=== PATIENT | female | born 1995 | race African-American/Black ===

== ENCOUNTER 2019-01-01 07:33 | Emergency (ER) | payer MEDICAID, MEDICARE ==
[~2019-01-01] VITALS: Ht 157.5 cm; Wt 60.0 kg
[2019-01-01 07:56] VITALS: BP 118/78
[2019-01-01] MEDS ORDERED: KETOROLAC 30MG/ML VIAL IM ONE (08:00)
== END 2019-01-01 08:46 | disposition home or self-care (01) ==
LOC: ER 07:33
DX: J02.9 Acute pharyngitis, unspecified (principal); R05 Cough
CPT/HCPCS: 81025; 87430; 96372; 99283; J1885

== ENCOUNTER 2020-01-18 | Emergency (ER) | payer SELFPAY ==
[~2020-01-18] VITALS: Ht 170.2 cm; Wt 68.0 kg
[2020-01-18] MEDS ORDERED: KETOROLAC 30MG/ML VIAL IM STA (01:22)
[2020-01-18 01:50] LABS: *BARBITURATES SCREEN URINE NEGATIVE (NEGATIVE); *BENZODIAZEPINES SCREEN URINE NEGATIVE (NEGATIVE); *COCAINE SCREEN URINE NEGATIVE (NEGATIVE); METHADONE URINE SCREEN NEGATIVE (NEGATIVE); OPIATES URINE SCREEN NEGATIVE (NEGATIVE); PHENCYCLIDINE URINE SCREEN NEGATIVE (NEGATIVE)
[2020-01-18 01:51] LABS: CANNABINOID URINE SCREEN NEGATIVE (NEGATIVE)
[2020-01-18 02:05] LABS: *AMPHETAMINES SCREEN URINE PRESUMTIVE POSITIVE (NEGATIVE)
[2020-01-18] MEDS ORDERED: ACETAMINOPHEN 325MG TABLET PO ONE (03:15)
[2020-01-18 03:42] LABS: BASOPHILS % 0.3 % (0.0-2.0); EOSINOPHILS % 0.5 % (0.0-5.0); HEMATOCRIT. 38.4 % (36.0-48.0); HEMOGLOBIN. 12.4 g/dL (12.0-16.0); LYMPHOCYTES % 9.9 % (20.0-50.0); MEAN CORPUSCULAR HEMOGLOBIN 23.4 pg (28.0-32.0); MEAN CORPUSCULAR VOLUME 72.7 fL (81.0-99.0); MEAN PLATELET VOLUME 8.9 fl (7.4-10.4); MONOCYTES % 4.9 % (2.0-8.0); NEUTROPHILS % 84.4 % (40.0-76.0); PLATELET 286 x1000/uL (130-400); RED BLOOD CELL COUNT 5.28 mill/uL (4.2-5.4); RED CELL DISTRIBUTION WIDTH 13.2 % (11.6-14.6)
[2020-01-18 03:57] LABS: CHLORIDE 103 mEq/L (98-107)
[2020-01-18 04:10] LABS: B-HCG QUANTITATIVE < 1 mIU/mL (<3)
[2020-01-18 06:11] LABS: CLARITY URINE CLOUDY (CLEAR); COLOR URINE YELLOW (YELLOW); KETONES URINE NEGATIVE (NEGATIVE); LEUKOCYTE ESTERASE URINE 3+ (NEGATIVE); NITRITE URINE NEGATIVE (NEGATIVE); OCCULT BLOOD URINE NEGATIVE (NEGATIVE); PROTEIN URINE NEGATIVE (NEGATIVE); SPECIFIC GRAVITY URINE 1.011 (1.005-1.030)
[2020-01-18 06:26] VITALS: BP 132/77
== END 2020-01-18 06:31 | disposition home or self-care (01) ==
LOC: ER
DX: R10.11 Right upper quadrant pain (principal); Z90.49 Acquired absence of other specified parts of digestive tract
CPT/HCPCS: 36415; 76705; 76830; 76856; 80053; 80305; 81003; 84702; 85025; 93005; 99285

== ENCOUNTER 2021-03-03 22:38 | Emergency (ER) | payer SELFPAY ==
[~2021-03-03] VITALS: Ht 162.6 cm; Wt 59.0 kg
[2021-03-04 00:33] LABS: HEMATOCRIT. 36.4 % (36.0-48.0); HEMOGLOBIN. 11.9 g/dL (12.0-16.0); MEAN CORPUSCULAR HEMOGLOBIN 23.6 pg (28.0-32.0); MEAN CORPUSCULAR VOLUME 72.2 fL (81.0-99.0); MEAN PLATELET VOLUME 8.2 fl (7.4-10.4); PLATELET 324 x1000/uL (130-400); RED BLOOD CELL COUNT 5.05 mill/uL (4.2-5.4); RED CELL DISTRIBUTION WIDTH 13.2 % (11.6-14.6)
[2021-03-04 00:40] LABS: CHLORIDE 103 mEq/L (98-107)
[2021-03-04 00:44] LABS: CLARITY URINE TURBID (CLEAR); KETONES URINE 2+ (NEGATIVE); LEUKOCYTE ESTERASE URINE 3+ (NEGATIVE); NITRITE URINE POSITIVE (NEGATIVE); OCCULT BLOOD URINE 3+ (NEGATIVE); PROTEIN URINE 3+ (NEGATIVE); SPECIFIC GRAVITY URINE 1.014 (1.005-1.030)
[2021-03-04 00:46] LABS: COLOR URINE BLOODY (YELLOW)
[2021-03-04 00:48] LABS: HCG SCREEN POSITIVE
[2021-03-04 01:03] LABS: B-HCG QUANTITATIVE 29562 mIU/mL (<3)
[2021-03-04 01:22] LABS: *COCAINE SCREEN URINE NEGATIVE (NEGATIVE); METHADONE URINE SCREEN NEGATIVE (NEGATIVE); OPIATES URINE SCREEN NEGATIVE (NEGATIVE); PHENCYCLIDINE URINE SCREEN NEGATIVE (NEGATIVE)
[2021-03-04 01:23] LABS: *BARBITURATES SCREEN URINE NEGATIVE (NEGATIVE); *BENZODIAZEPINES SCREEN URINE NEGATIVE (NEGATIVE); CANNABINOID URINE SCREEN NEGATIVE (NEGATIVE)
[2021-03-04 01:30] LABS: *AMPHETAMINES SCREEN URINE PRESUMTIVE POSITIVE (NEGATIVE)
[2021-03-04 02:22] LABS: PLATELET ESTIMATE NORMAL
[2021-03-04] MEDS ORDERED: MORPHINE SULFATE 4 MG/ML CPJ (NOT FOR IM USE) IV ONE (03:00)
[2021-03-04] MEDS ORDERED: IBUP-2028 MT (04:25)
[2021-03-04 06:13] VITALS: BP 120/55
== END 2021-03-04 06:15 | disposition home or self-care (01) ==
LOC: ER 22:38
DX: O03.9 Complete or unspecified spontaneous abortion without complication (principal); Z3A.01 Less than 8 weeks gestation of pregnancy
CPT/HCPCS: 36415; 76801; 76817; 80053; 80305; 81003; 81025; 84702; 84703; 85025; 86850; 86900; 86901; 87086; 88307; 88309; 96374; 99285; J2270

== ENCOUNTER 2023-03-11 08:16 | Emergency (ER) | payer OTHER ==
[~2023-03-11] VITALS: Ht 170.2 cm; Wt 66.0 kg
[~2023-03-11 08:16] MED LIST: IBUP-2028 MT
[2023-03-11 08:28] VITALS: O2SAT 100
[2023-03-11] MEDS ORDERED: ACETAMINOPHEN 325MG TABLET PO PRN (09:00)
[2023-03-11 10:04] LABS: BASOPHILS % 0.8 % (0.0-2.0); DIFFERENTIAL COMMENT 0; EOSINOPHILS % 0.8 % (0.0-5.0); HEMATOCRIT. 36.8 % (36.0-48.0); HEMOGLOBIN. 11.6 g/dL (12.0-16.0); LYMPHOCYTES % 30.9 % (20.0-50.0); MEAN CORPUSCULAR HEMOGLOBIN 23.9 pg (28.0-32.0); MEAN CORPUSCULAR HGB CONC 31.6 g/dL (31.0-37.0); MEAN CORPUSCULAR VOLUME 75.6 fL (81.0-99.0); MEAN PLATELET VOLUME 8.4 fl (7.4-10.4); MONOCYTES % 8.5 % (2.0-8.0); PLATELET 308 x1000/uL (130-400); RED BLOOD CELL COUNT 4.87 mill/uL (4.2-5.4); RED CELL DISTRIBUTION WIDTH 13.5 % (11.6-14.6); WHITE BLOOD COUNT 7.5 x1000/uL (4.5-11.0)
[2023-03-11 10:14] LABS: CLARITY URINE CLEAR (CLEAR); COLOR URINE YELLOW (YELLOW); GLUCOSE URINE NEGATIVE (NEGATIVE); KETONES URINE NEGATIVE (NEGATIVE); LEUKOCYTE ESTERASE URINE TRACE (NEGATIVE); NITRITE URINE NEGATIVE (NEGATIVE); OCCULT BLOOD URINE 3+ (NEGATIVE); PROTEIN URINE NEGATIVE (NEGATIVE); SPECIFIC GRAVITY URINE 1.014 (1.005-1.030)
[2023-03-11 10:16] LABS: BACTERIA URINE NONE SEEN; RBC URINE TNTC /hpf (0-2); YEAST URINE NONE SEEN
[2023-03-11] MEDS ORDERED: CEFTRIAXONE 1GM PREMIX 50 ML IV NR (10:30)
[2023-03-11 10:32] LABS: ALANINE AMINOTRANSFERASE 8 IU/L (10-49); ALBUMIN 3.8 g/dL (3.2-4.8); ASPARTATE AMINOTRANSFERASE 18 IU/L (<34); B-HCG QUANTITATIVE 1220 mIU/mL (<3); BILIRUBIN TOTAL 0.3 mg/dL (0.1-1.0); CARBON DIOXIDE 30 mEq/L (21-32); CHLORIDE 104 mEq/L (98-107); CREATININE 0.8 mg/dL (0.6-1.0); GLUCOSE 83 mg/dL (70-105); PROTEIN TOTAL 6.4 g/dL (6.0-8.3); SODIUM 137 mEq/L (136-145); UREA NITROGEN BLOOD 7 mg/dL (9-23)
[2023-03-11 10:33] LABS: SQUAMOUS EPITHELIAL CELL URINE 1+ /lpf (RARE/1+)
[2023-03-11 10:35] LABS: TRICHOMONAS URINE RARE
[2023-03-11 10:44] LABS: ETHANOL BLOOD < 10 mg/dL (<10)
[2023-03-11] MEDS ORDERED: CEPH500C2 MT (11:03)
[2023-03-11] MEDS ORDERED: METHOTREXATE SODIUM/PF 50 MG/2 ML VIAL IM NR (12:00)
[2023-03-11 14:30] VITALS: BP 122/76; PULSE 71; RESP 14; TEMP 98.6
[2023-03-11 16:22] LABS: *AMPHETAMINES SCREEN URINE PRESUMPTIVE POSITIVE (NEGATIVE); *BARBITURATES SCREEN URINE NEGATIVE (NEGATIVE); *BENZODIAZEPINES SCREEN URINE NEGATIVE (NEGATIVE); *COCAINE SCREEN URINE NEGATIVE (NEGATIVE); CANNABINOID URINE SCREEN NEGATIVE (NEGATIVE); METHADONE URINE SCREEN Neg (NEGATIVE); OPIATES URINE SCREEN NEGATIVE (NEGATIVE); PHENCYCLIDINE URINE SCREEN NEGATIVE (NEGATIVE)
== END 2023-03-11 14:31 | disposition home or self-care (01) ==
LOC: ER 08:52
DX: O23.41 Unspecified infection of urinary tract in pregnancy, first trimester (principal); N39.0 Urinary tract infection, site not specified; Z3A.00 Weeks of gestation of pregnancy not specified
CPT/HCPCS: 80053; 80305; 81003; 81025; 80320; 84702; 85025; 86850; 86900; 86901; 36415; 76801; 76817; 96365; 96372; 99291; J9260; J0696; Z7610; G0480

== ENCOUNTER 2023-08-30 00:23 | Emergency (ER) | payer OTHER ==
[~2023-08-30] VITALS: Ht 167.6 cm; Wt 59.0 kg
[~2023-08-30 00:23] MED LIST changes: +CEPH500C2 MT
[2023-08-30 00:33] VITALS: BP 124/97; PULSE 114; RESP 16; O2SAT 100
[2023-08-30 00:47] VITALS: TEMP 100.8
[2023-08-30] MEDS: ACETAMINOPHEN 325MG TABLET PO ONE (00:47)
== END 2023-08-30 04:24 | disposition left against medical advice (07) ==
LOC: ER 00:23
DX: J02.9 Acute pharyngitis, unspecified (principal); R05.9 Cough, unspecified; F15.10 Other stimulant abuse, uncomplicated; Z53.21 Procedure and treatment not carried out due to patient leaving prior to being seen by health care provider; Z98.890 Other specified postprocedural states
CPT/HCPCS: 99283

== ENCOUNTER 2023-09-03 07:30 | Emergency (ER) | payer OTHER ==
[~2023-09-03] VITALS: Ht 167.6 cm; Wt 75.0 kg
[2023-09-03 07:43] VITALS: O2SAT 100
[2023-09-03] MEDS: ACETAMINOPHEN 325MG TABLET PO ONE (09:16)
[2023-09-03] MEDS ORDERED: AMOX1TAB16 MT (10:45)
[2023-09-03 11:24] VITALS: BP 113/75; PULSE 96; RESP 17; TEMP 98.2
[2023-09-03] MEDS: AMOXICILLIN/POTASSIUM CLAVULANATE 875/125MG TAB PO ONE (11:24)
[2023-09-04] MEDS ORDERED: ALBU18HF2 IH (11:06)
[2023-09-04] MEDS ORDERED: LEVO750T68 MT (11:06)
[2023-09-04] MEDS ORDERED: FLUT1DIS3 INH (11:06)
[2023-09-04] MEDS ORDERED: IBUP-2028 MT (11:06)
== END 2023-09-03 11:29 | disposition home or self-care (01) ==
LOC: ER 07:30
DX: J18.9 Pneumonia, unspecified organism (principal); F15.10 Other stimulant abuse, uncomplicated
CPT/HCPCS: 71046; 93005; 99283

== ENCOUNTER 2023-09-05 08:37 | Inpatient (IN) | payer OTHER ==
[~2023-09-05] VITALS: Ht 162.6 cm; Wt 67.1 kg
[~2023-09-05 08:37] MED LIST changes: +ALBU18HF2 IH; -CEPH500C2 MT; +FLUT1DIS3 INH; +LEVO750T68 MT
[2023-09-05 09:19] LABS: HEMATOCRIT. 37.7 % (36.0-48.0); HEMOGLOBIN. 12.2 g/dL (12.0-16.0); MEAN CORPUSCULAR HEMOGLOBIN 23.1 pg (28.0-32.0); MEAN CORPUSCULAR HGB CONC 32.4 g/dL (31.0-37.0); MEAN CORPUSCULAR VOLUME 71.2 fL (81.0-99.0); MEAN PLATELET VOLUME 8.2 fl (7.4-10.4); PLATELET 562 x1000/uL (130-400); RED BLOOD CELL COUNT 5.29 mill/uL (4.2-5.4); RED CELL DISTRIBUTION WIDTH 15.1 % (11.6-14.6); WHITE BLOOD COUNT 23.6 x1000/uL (4.5-11.0)
[2023-09-05 09:23] LABS: DIFFERENTIAL COMMENT 1
[2023-09-05 09:24] LABS: CHLORIDE 98 mEq/L (98-107); POTASSIUM 4.5 mEq/L (3.5-5.1); SODIUM 131 mEq/L (136-145)
[2023-09-05 09:25] LABS: CALCIUM 8.5 mg/dL (8.7-10.4); CARBON DIOXIDE 26 mEq/L (21-32)
[2023-09-05 09:28] LABS: HCG SCREEN NEGATIVE
[2023-09-05 09:30] LABS: CREATININE 0.8 mg/dL (0.6-1.0); GLUCOSE 102 mg/dL (70-105); UREA NITROGEN BLOOD 7 mg/dL (9-23)
[2023-09-05 09:45] LABS: BG BASE EXCESS 3.8 mmol/L (-2.0-2.0); BG CARBOXYHEMOGLOBIN 0.3 % (0.5-1.5); BG DEOXYHEMOGLOBIN 6.4 % (0.0-5.0); BG FRACTION INSPIRED OXYGEN 21; BG HCO3 ACT 26.7 mmol/L (22.0-26.0); BG METHEMOGLOBIN 0.2 % (0.0-1.5); BG OXYGEN SATURATION 93.6 % (92.0-98.5); BG OXYHEMOGLOBIN 93.1 % (94.0-97.0); BG PCO2 34.5 mmHg (35.0-45.0); BG PH 7.506 (7.350-7.450); BG PO2 61.4 mmHg (75.0-100.0); BG SAMPLE SITE RIGHT RADIAL; BG TOTAL HEMOGLOBIN 13.3 g/dL (12.0-18.0); BG VENT MODE ROOM AIR
[2023-09-05] MEDS: PIPERACILLIN/TAZO 3.375G/50ML 50 ML IV ONE (09:59)
[2023-09-05] MEDS: SODIUM CHLORIDE 0.9% 1000ML BAG (SEPSIS BOLUS) IV ONE (10:00)
[2023-09-05] MEDS: VANCOMYCIN 1G PREMIX 200 ML IV ONE (10:36)
[2023-09-05] MEDS: KETOROLAC 30MG/ML VIAL IV ONE (12:14)
[2023-09-05] MEDS ORDERED: NALOXONE HCL 0.4MG/ML VIAL IV PRN (12:15)
[2023-09-05 13:05] LABS: PLATELET ESTIMATE INCREASED
[2023-09-05 13:06] LABS: ANISOCYTOSIS 1+; MICROCYTOSIS 1+
[2023-09-05] MEDS: KETOROLAC 30MG/ML VIAL IV PRN (16:28)
[2023-09-05] MEDS ORDERED: IPRATROPIUM/ALBUTEROL 0.5-3(2.5)MG/3ML NEB HHN PRN (16:30)
[2023-09-05] MEDS: PIPERACILLIN/TAZO 3.375G/50ML 50 ML IV SCH (21:25)
[2023-09-05] MEDS: HALOPERIDOL LACTATE 5MG/ML VIAL IM PRN (21:26)
[2023-09-05] MEDS ORDERED: PIPERACILLIN/TAZO 3.375G/50ML 50 ML IV SCH (22:00)
[2023-09-06] VITALS: BP_SYST 125; BP_SYST 128; BP_DIAS 66; PULSE 105; RESP 18; TEMP 98.1; TEMP 98.5
[2023-09-06 01:23] VITALS: BP 115/64; PULSE 105; RESP 22; TEMP 97.8
[2023-09-06 04:08] VITALS: BP 128/66; PULSE 102; RESP 23; TEMP 98.2
[2023-09-06 06:00] VITALS: BP 111/63; PULSE 85; RESP 18; TEMP 97.5
[2023-09-06 06:22] LABS: CARBON DIOXIDE 26 mEq/L (21-32); CHLORIDE 103 mEq/L (98-107); POTASSIUM 4.5 mEq/L (3.5-5.1); SODIUM 135 mEq/L (136-145)
[2023-09-06 06:23] LABS: CALCIUM 8.2 mg/dL (8.7-10.4)
[2023-09-06 06:27] LABS: HEMATOCRIT. 33.1 % (36.0-48.0); HEMOGLOBIN. 10.9 g/dL (12.0-16.0); MEAN CORPUSCULAR HEMOGLOBIN 23.5 pg (28.0-32.0); MEAN CORPUSCULAR HGB CONC 32.8 g/dL (31.0-37.0); MEAN CORPUSCULAR VOLUME 71.6 fL (81.0-99.0); MEAN PLATELET VOLUME 8.4 fl (7.4-10.4); PLATELET 557 x1000/uL (130-400); RED BLOOD CELL COUNT 4.62 mill/uL (4.2-5.4); RED CELL DISTRIBUTION WIDTH 15.1 % (11.6-14.6); WHITE BLOOD COUNT 23.5 x1000/uL (4.5-11.0)
[2023-09-06 06:28] LABS: CREATININE 0.7 mg/dL (0.6-1.0); GLUCOSE 106 mg/dL (70-105); UREA NITROGEN BLOOD 9 mg/dL (9-23)
[2023-09-06 06:33] LABS: DIFFERENTIAL COMMENT 1
[2023-09-06 15:05] LABS: PLATELET ESTIMATE SLIGHTLY INCREASED
[2023-09-06] MEDS: HYDROCODONE/ACETAMINOPHEN 10/325MG TABLET PO PRN (15:30)
[2023-09-07] VITALS (8 sets, daily range): BP systolic 111–125; BP diastolic 63–74; PULSE 76–102; RESP 18–20; TEMP 97.5–98.1
[2023-09-07 05:52] LABS: CARBON DIOXIDE 28 mEq/L (21-32); CHLORIDE 101 mEq/L (98-107); HEMATOCRIT. 32.1 % (36.0-48.0); HEMOGLOBIN. 10.4 g/dL (12.0-16.0); MEAN CORPUSCULAR HEMOGLOBIN 23.2 pg (28.0-32.0); MEAN CORPUSCULAR HGB CONC 32.5 g/dL (31.0-37.0); MEAN CORPUSCULAR VOLUME 71.3 fL (81.0-99.0); MEAN PLATELET VOLUME 8.5 fl (7.4-10.4); PLATELET 635 x1000/uL (130-400); POTASSIUM 4.5 mEq/L (3.5-5.1); RED CELL DISTRIBUTION WIDTH 14.7 % (11.6-14.6); SODIUM 135 mEq/L (136-145); WHITE BLOOD COUNT 32.4 x1000/uL (4.5-11.0)
[2023-09-07 05:53] LABS: CALCIUM 8.3 mg/dL (8.7-10.4)
[2023-09-07 05:58] LABS: CREATININE 0.6 mg/dL (0.6-1.0); GLUCOSE 97 mg/dL (70-105); UREA NITROGEN BLOOD 8 mg/dL (9-23)
[2023-09-07 06:52] LABS: DIFFERENTIAL COMMENT 1
[2023-09-07 15:19] LABS: HYPOCHROMASIA 1+; MICROCYTOSIS 2+; PLATELET ESTIMATE INCREASED; TARGET CELLS 1+
[2023-09-07] MEDS: AZITHROMYCIN 500 MG TABLET PO NR (18:30)
[2023-09-08 06:43] LABS: HEMOGLOBIN. 11.1 g/dL (12.0-16.0); MEAN CORPUSCULAR HEMOGLOBIN 23.7 pg (28.0-32.0); MEAN CORPUSCULAR HGB CONC 32.8 g/dL (31.0-37.0); MEAN CORPUSCULAR VOLUME 72.3 fL (81.0-99.0); MEAN PLATELET VOLUME 8.1 fl (7.4-10.4); PLATELET 644 x1000/uL (130-400); RED CELL DISTRIBUTION WIDTH 14.7 % (11.6-14.6); WHITE BLOOD COUNT 29.8 x1000/uL (4.5-11.0)
[2023-09-08 06:52] LABS: DIFFERENTIAL COMMENT 1
[2023-09-08 06:53] LABS: CARBON DIOXIDE 25 mEq/L (21-32); CHLORIDE 102 mEq/L (98-107); POTASSIUM 4.4 mEq/L (3.5-5.1); SODIUM 133 mEq/L (136-145)
[2023-09-08 06:55] LABS: CALCIUM 8.7 mg/dL (8.7-10.4)
[2023-09-08 06:59] LABS: CREATININE 0.7 mg/dL (0.6-1.0); GLUCOSE 101 mg/dL (70-105); UREA NITROGEN BLOOD 7 mg/dL (9-23)
[2023-09-08 08:00] VITALS: BP 117/61; PULSE 92; RESP 20; TEMP 98.3
[2023-09-08] MEDS: AZITHROMYCIN 500 MG TABLET PO SCH (08:32)
[2023-09-08 11:11] LABS: MICROCYTOSIS 1+; PLATELET ESTIMATE MARKEDLY INCREASED; TARGET CELLS 2+
[2023-09-08 12:00] VITALS: BP 120/69; PULSE 89; RESP 20; TEMP 98.4
[2023-09-08 16:00] VITALS: BP 98/53; PULSE 71; RESP 20; TEMP 96.9
[2023-09-09 04:00] VITALS: BP 104/60; PULSE 98; RESP 19; TEMP 98
[2023-09-09 06:22] LABS: HEMATOCRIT. 31.5 % (36.0-48.0); HEMOGLOBIN. 10.2 g/dL (12.0-16.0); MEAN CORPUSCULAR HGB CONC 32.5 g/dL (31.0-37.0); MEAN CORPUSCULAR VOLUME 70.8 fL (81.0-99.0); MEAN PLATELET VOLUME 8.2 fl (7.4-10.4); PLATELET 668 x1000/uL (130-400); RED BLOOD CELL COUNT 4.45 mill/uL (4.2-5.4); RED CELL DISTRIBUTION WIDTH 14.8 % (11.6-14.6); WHITE BLOOD COUNT 22.3 x1000/uL (4.5-11.0)
[2023-09-09 06:26] LABS: CARBON DIOXIDE 26 mEq/L (21-32); CHLORIDE 101 mEq/L (98-107); POTASSIUM 4.6 mEq/L (3.5-5.1); SODIUM 133 mEq/L (136-145)
[2023-09-09 06:27] LABS: CALCIUM 8.3 mg/dL (8.7-10.4)
[2023-09-09 06:32] LABS: CREATININE 0.7 mg/dL (0.6-1.0); GLUCOSE 136 mg/dL (70-105); UREA NITROGEN BLOOD 7 mg/dL (9-23)
[2023-09-09 07:22] LABS: DIFFERENTIAL COMMENT 1
[2023-09-09 08:00] VITALS: BP 107/55; PULSE 86; RESP 20; TEMP 98.1
[2023-09-09] MEDS: LORAZEPAM 1MG TABLET PO PRN (11:03)
[2023-09-09 12:00] VITALS: BP 111/59; PULSE 93; RESP 19; TEMP 97.6
[2023-09-09 17:55] LABS: HYPOCHROMASIA 1+; MICROCYTOSIS 2+; PLATELET ESTIMATE INCREASED
[2023-09-09 20:00] VITALS: BP 106/57; PULSE 116; RESP 19; TEMP 101.5
[2023-09-09] MEDS: BUDESONIDE 0.5MG/2ML NEB HHN SCH (21:21)
[2023-09-09 21:22] VITALS: PULSE 70; RESP 18; O2SAT 95
[2023-09-09] MEDS: IPRATROPIUM/ALBUTEROL 0.5-3(2.5)MG/3ML NEB HHN SCH (21:22)
[2023-09-10] VITALS (9 sets, daily range): BP systolic 103–120; BP diastolic 53–67; PULSE 71–106; RESP 18–22; TEMP 97.2–102; O2SAT 86–97
[2023-09-10] MEDS: ACETAMINOPHEN 325MG TABLET PO PRN (01:37)
[2023-09-10] MEDS: ACETYLCYSTEINE 200MG/ML 20% VIAL 4ML INH SCH (01:47)
[2023-09-10 06:37] LABS: CARBON DIOXIDE 29 mEq/L (21-32); CHLORIDE 101 mEq/L (98-107); POTASSIUM 4.8 mEq/L (3.5-5.1); SODIUM 134 mEq/L (136-145)
[2023-09-10 06:38] LABS: CALCIUM 8.5 mg/dL (8.7-10.4)
[2023-09-10 06:43] LABS: CREATININE 0.8 mg/dL (0.6-1.0); GLUCOSE 96 mg/dL (70-105); UREA NITROGEN BLOOD 7 mg/dL (9-23)
[2023-09-10 06:51] LABS: HEMATOCRIT. 31.1 % (36.0-48.0); HEMOGLOBIN. 10.2 g/dL (12.0-16.0); MEAN CORPUSCULAR HEMOGLOBIN 23.4 pg (28.0-32.0); MEAN CORPUSCULAR HGB CONC 32.8 g/dL (31.0-37.0); MEAN CORPUSCULAR VOLUME 71.4 fL (81.0-99.0); MEAN PLATELET VOLUME 8.1 fl (7.4-10.4); PLATELET 716 x1000/uL (130-400); RED BLOOD CELL COUNT 4.36 mill/uL (4.2-5.4); RED CELL DISTRIBUTION WIDTH 14.6 % (11.6-14.6); WHITE BLOOD COUNT 20.2 x1000/uL (4.5-11.0)
[2023-09-10 07:08] LABS: DIFFERENTIAL COMMENT 1
[2023-09-10 16:56] LABS: HYPOCHROMASIA 1+; MICROCYTOSIS 2+; PLATELET ESTIMATE INCREASED
[2023-09-11] VITALS (7 sets, daily range): BP systolic 112–136; BP diastolic 62–70; PULSE 79–96; RESP 16–20; TEMP 96.5–98.7; O2SAT 100
[2023-09-11 09:20] LABS: BASOPHILS % 0.4 % (0.0-2.0); DIFFERENTIAL COMMENT 0; EOSINOPHILS % 0.9 % (0.0-5.0); HEMATOCRIT. 33.1 % (36.0-48.0); HEMOGLOBIN. 10.7 g/dL (12.0-16.0); LYMPHOCYTES % 10.6 % (20.0-50.0); MEAN CORPUSCULAR HEMOGLOBIN 23.4 pg (28.0-32.0); MEAN CORPUSCULAR HGB CONC 32.4 g/dL (31.0-37.0); MEAN CORPUSCULAR VOLUME 72.2 fL (81.0-99.0); MONOCYTES % 8.7 % (2.0-8.0); NEUTROPHILS % 79.4 % (40.0-76.0); PLATELET 771 x1000/uL (130-400); RED BLOOD CELL COUNT 4.58 mill/uL (4.2-5.4); RED CELL DISTRIBUTION WIDTH 14.8 % (11.6-14.6); WHITE BLOOD COUNT 13.3 x1000/uL (4.5-11.0)
[2023-09-11 09:35] LABS: CARBON DIOXIDE 29 mEq/L (21-32); CHLORIDE 103 mEq/L (98-107)
[2023-09-11 09:36] LABS: POTASSIUM 4.5 mEq/L (3.5-5.1); SODIUM 136 mEq/L (136-145)
[2023-09-11 09:37] LABS: CALCIUM 8.8 mg/dL (8.7-10.4)
[2023-09-11 09:41] LABS: CREATININE 0.6 mg/dL (0.6-1.0); GLUCOSE 98 mg/dL (70-105)
[2023-09-11 09:42] LABS: UREA NITROGEN BLOOD 8 mg/dL (9-23)
[2023-09-11] MEDS ORDERED: BUDESONIDE 0.5MG/2ML NEB HHN SCH (18:00)
== END 2023-09-11 16:14 | disposition home or self-care (01) | DRG 720 ==
LOC: ER 08:37 → 3WST 10:53 → EDBEDREQ 10:58 → EDBEDREQTM 10:58 → 6EST 09-07 17:10
PROVIDERS: ADMIT Internal Medicine; ATTEND Internal Medicine
DX: A41.9 Sepsis, unspecified organism (principal); J96.00 Acute respiratory failure, unspecified whether with hypoxia or hypercapnia; J18.9 Pneumonia, unspecified organism; R16.0 Hepatomegaly, not elsewhere classified; F15.10 Other stimulant abuse, uncomplicated; F17.210 Nicotine dependence, cigarettes, uncomplicated; Z91.199 Patient's noncompliance with other medical treatment and regimen due to unspecified reason; Z59.00 Homelessness unspecified
CPT/HCPCS: 36415; 36600; 71045; 80048; 82375; 82805; 83605; 83880; 84145; 84703; 85025; 93005; 94640; 97165; 99291; J1630; J1885; J2543; J3370; J7030; J7608; J7626

== ENCOUNTER 2024-01-12 16:26 | Emergency (ER) | payer OTHER ==
[~2024-01-12] VITALS: Ht 175.3 cm; Wt 75.0 kg
[2024-01-12 16:29] VITALS: BP 119/53; PULSE 98; RESP 18; TEMP 98.2; O2SAT 100
[2024-01-12 17:07] LABS: BASOPHILS % 0.9 % (0.0-2.0); DIFFERENTIAL COMMENT 0; EOSINOPHILS % 0.4 % (0.0-5.0); HEMATOCRIT. 36.8 % (36.0-48.0); HEMOGLOBIN. 11.7 g/dL (12.0-16.0); MEAN CORPUSCULAR HEMOGLOBIN 23.2 pg (28.0-32.0); MEAN CORPUSCULAR HGB CONC 31.7 g/dL (31.0-37.0); MEAN CORPUSCULAR VOLUME 73.3 fL (81.0-99.0); MEAN PLATELET VOLUME 8.1 fl (7.4-10.4); MONOCYTES % 6.4 % (2.0-8.0); NEUTROPHILS % 73.3 % (40.0-76.0); PLATELET 314 x1000/uL (130-400); RED BLOOD CELL COUNT 5.02 mill/uL (4.2-5.4); RED CELL DISTRIBUTION WIDTH 13.9 % (11.6-14.6); WHITE BLOOD COUNT 8.5 x1000/uL (4.5-11.0)
[2024-01-12 17:12] LABS: CLARITY URINE CLEAR (CLEAR); COLOR URINE YELLOW (YELLOW); GLUCOSE URINE NEGATIVE (NEGATIVE); KETONES URINE NEGATIVE (NEGATIVE); LEUKOCYTE ESTERASE URINE 1+ (NEGATIVE); NITRITE URINE NEGATIVE (NEGATIVE); OCCULT BLOOD URINE NEGATIVE (NEGATIVE); PH URINE 5.5 (4.5-8.0); PROTEIN URINE NEGATIVE (NEGATIVE); SPECIFIC GRAVITY URINE 1.018 (1.005-1.030); UROBILINOGEN URINE 0.2 E.U./dL (0.2-1.0)
[2024-01-12 17:13] LABS: CHLORIDE 106 mEq/L (98-107); POTASSIUM 4.1 mEq/L (3.5-5.1); SODIUM 139 mEq/L (136-145)
[2024-01-12 17:14] LABS: CALCIUM 9.2 mg/dL (8.7-10.4); CARBON DIOXIDE 30 mEq/L (21-32)
[2024-01-12 17:19] LABS: CREATININE 0.8 mg/dL (0.6-1.0); GLUCOSE 89 mg/dL (70-105); HCG SCREEN POSITIVE; UREA NITROGEN BLOOD 10 mg/dL (9-23)
[2024-01-12 17:21] LABS: ALANINE AMINOTRANSFERASE 12 IU/L (10-49); ALBUMIN 3.8 g/dL (3.2-4.8); ASPARTATE AMINOTRANSFERASE 23 IU/L (<34); BILIRUBIN TOTAL 0.3 mg/dL (0.1-1.0); PROTEIN TOTAL 6.9 g/dL (6.0-8.3)
[2024-01-12 17:27] LABS: INR 0.9
[2024-01-12 17:35] LABS: BILIRUBIN DIRECT < 0.1 mg/dL (<=3.0)
[2024-01-12 17:40] LABS: BACTERIA URINE 2+; RBC URINE 0-2 /hpf (0-2); SQUAMOUS EPITHELIAL CELL URINE 1+ /lpf (RARE/1+)
== END 2024-01-12 20:23 | disposition left against medical advice (07) ==
LOC: ER 16:26
DX: O26.891 Other specified pregnancy related conditions, first trimester (principal); J45.909 Unspecified asthma, uncomplicated; F15.90 Other stimulant use, unspecified, uncomplicated; Z3A.00 Weeks of gestation of pregnancy not specified
CPT/HCPCS: 36415; 80048; 80076; 81003; 84702; 84703; 85025; 99283

== ENCOUNTER 2024-07-30 21:55 | Emergency (ER) | payer OTHER ==
[~2024-07-30] VITALS: Ht 160 cm; Wt 54.0 kg
[2024-07-30 22:10] VITALS: TEMP 36.8; O2SAT 100
[2024-07-30 23:12] LABS: DIFFERENTIAL COMMENT 0; EOSINOPHILS % 1.9 % (0.0-5.0); HEMOGLOBIN. 11.9 g/dL (12.0-16.0); LYMPHOCYTES % 30.5 % (20.0-50.0); MEAN CORPUSCULAR HEMOGLOBIN 22.8 pg (28.0-32.0); MEAN CORPUSCULAR HGB CONC 31.3 g/dL (31.0-37.0); MEAN CORPUSCULAR VOLUME 72.9 fL (81.0-99.0); MEAN PLATELET VOLUME 8.6 fl (7.4-10.4); MONOCYTES % 9.1 % (2.0-8.0); NEUTROPHILS % 57.5 % (40.0-76.0); PLATELET 337 x1000/uL (130-400); RED BLOOD CELL COUNT 5.22 mill/uL (4.2-5.4); RED CELL DISTRIBUTION WIDTH 14.7 % (11.6-14.6)
[2024-07-30 23:16] LABS: PROTHROMBIN TIME 10.4 sec (9.6-11.0)
[2024-07-30 23:17] LABS: CHLORIDE 107 mEq/L (98-107); SODIUM 141 mEq/L (136-145)
[2024-07-30 23:18] LABS: CARBON DIOXIDE 28 mEq/L (21-32)
[2024-07-30 23:19] LABS: CALCIUM 9.6 mg/dL (8.7-10.4)
[2024-07-30 23:23] LABS: CREATININE 0.9 mg/dL (0.6-1.0)
[2024-07-30 23:24] LABS: GLUCOSE 93 mg/dL (70-105); UREA NITROGEN BLOOD 9 mg/dL (9-23)
[2024-07-30 23:25] LABS: ALANINE AMINOTRANSFERASE 19 IU/L (10-49); ALBUMIN 3.7 g/dL (3.2-4.8)
[2024-07-30 23:26] LABS: ASPARTATE AMINOTRANSFERASE 26 IU/L (<34); BILIRUBIN DIRECT < 0.1 mg/dL (<=3.0); BILIRUBIN TOTAL 0.4 mg/dL (0.1-1.0)
[2024-07-30 23:45] LABS: HCG SCREEN NEGATIVE
[2024-07-31] MEDS ORDERED: SULF1TAB48 MT (01:39)
[2024-07-31 01:55] VITALS: BP 119/85; PULSE 88; RESP 12; O2SAT 100
== END 2024-07-31 02:11 | disposition home or self-care (01) ==
LOC: ER 21:55
DX: T81.30XA Disruption of wound, unspecified, initial encounter (principal); F15.10 Other stimulant abuse, uncomplicated; Z79.899 Other long term (current) drug therapy; Z98.890 Other specified postprocedural states; Y99.8 Other external cause status
CPT/HCPCS: 36415; 74176; 80048; 80076; 84703; 85025; 99284